=== PATIENT | male | born 1965 | race Caucasian/White ===

== ENCOUNTER 2021-09-06 20:00 | Emergency (ER) | payer OTHER, SELFPAY ==
[2021-09-06 20:06] VITALS: BP 169/88; PULSE 68; RESP 18; TEMP 36.9; O2SAT 99
--- NOTE | 2021-09-07 03:18 | PC.NURSE ---
2nd call no answer
--- NOTE | 2021-09-07 03:21 | PC.NURSE ---
Pt no answer to triage call [phone] and [phone].
== END 2021-09-07 07:22 | disposition left against medical advice (07) ==
LOC: ANHED 09-07 07:09
DX: R10.31 Right lower quadrant pain (principal)
CPT/HCPCS: 99199

== ENCOUNTER 2023-05-04 16:13 | Inpatient (IN) | payer OTHER, SELFPAY ==
[2023-05-04] VITALS (11 sets, daily range): BP systolic 146–171; BP diastolic 60–98; PULSE 80–94; RESP 16–19; TEMP 36.3–36.8; O2SAT 92–98; BMI 34.5
--- NOTE | ~2023-05-04 | XR_ITS ---
EXAMINATION: XR chest 2V DATE: 05/04/2023 16:42 INDICATION: Chest pain TECHNIQUE: PA and lateral views of the chest were obtained. COMPARISON: None FINDINGS: Azygos lobe and fissure at the medial right upper lung zone. The cardiomediastinal silhouette is norm al. Mild thoracic spondylosis and mild anterior wedging of a lower thoracic vertebral body. IMPRESSION: 1. No acute cardiopulmonary disease. Reviewed, dictated and finalized at location A. NURSE
--- NOTE | 2023-05-04 16:13 | ECG_ITS ---
Measurements Intervals [place] Rate: 92 P: 41 NM: 137 QRS: 30 QRSD: 102 T: 64 QT: 355 QTc: 440 Interpretive Statements SINUS RHYTHM WITHIN NORMAL LIMITS NO PREVIOUS ECG AVAILABLE FOR COMPARISON Electronically Signed On 05-05-2023 8:13:06 BODY FORMER by Moose Lynn M.D.
[2023-05-04 16:37] LABS: Basophils Absolute Auto 0.1 K/mm3 (0.0-0.1); Basophils Percent Auto 0.8 % (0.2-1.2); Eosinophils Absolute Auto 0.2 K/mm3 (0-0.3); Eosinophils Percent Auto 2.1 % (0-4.4); Hematocrit 47.4 % (42.0-52.0); Hemoglobin 15.4 g/dL (14.0-18.0); Immature Granulocyte Absolute 0.05 K/mm3 (0.00-0.031); Immature Granulocyte Percent A 0.5 % (0-0.5); Lymphocytes Absolute Auto 2.63 K/mm3 (0.9-3.2); Lymphocytes Percent Auto 28.6 % (18.3-44.2); Mean Corpuscular HGB Conc 32.5 g/dl (32-36); Mean Corpuscular Hemoglobin 29.9 pg (26-34); Mean Platelet Volume 10.4 fl (7.4-10.4); Monocytes Absolute Auto 0.7 K/mm3 (0.1-0.6); Monocytes Percent Auto 7.9 % (2.6-8.5); Neutrophils Absolute Auto 5.5 K/mm3 (1.3-6.7); Neutrophils Percent Auto 60.1 % (45.5-73.1); Platelet Count Result 207 k/mm3 (150-375); Red Blood Count 5.15 M/mm3 (4.6-6.20); Red Cell Distribution Width 13.1 % (11.5-14.5); White Blood Count 9.2 K/mm3 (4.5-10.0)
[2023-05-04 16:51] LABS: INR 0.9; Prothrombin Time 12.8 Seconds (11.1-14.7)
[2023-05-04 16:52] LABS: Alanine Aminotransferase 26 U/L (6-50); Albumin Level 4.9 g/dL (3.5-5.1); Alkaline Phosphatase 82 U/L (38-126); Anion Gap 10 mmol/L (8-16); Aspartate Amino Transferase 33 U/L (17-59); Bilirubin,Total 0.5 mg/dL (0.2-1.3); Blood Urea Nitrogen 17 mg/dL (9-20); Calcium 9.9 mg/dL (8.4-10.2); Carbon Dioxide 26 mmol/L (22-30); Chloride 106 mmol/L (98-107); Estimated CRCL calculation 106 ml/min; Estimated Glomerular Filt Rate > 60; Glucose 125 mg/dL (65-110); Lipase 70 U/L (23-300); Partial Thromboplastin Time 27.7 SECONDS (22.3-36.8); Potassium 3.7 mmol/L (3.4-5.0); Sodium 142 mmol/L (137-145)
[2023-05-04 17:04] LABS: Troponin I 0.027 ng/mL (0.000-0.034)
--- NOTE | 2023-05-04 19:49 | ED.CHESTPAIN ---
HPI - Chest Pain General Chief Complaint: Chest Pain Stated Complaint: chest pain Time Seen by Provider: 05/04/23 19:49 History of Present Illness HPI narrative: Patient is of 57-year-old male with no known past medical history, has not seen a doctor for more than 20 years here with chest pain. He states that he began having what he describes as some indigestion around 9:00 a.m. this morning. He states that it was persistent despite taking Tums. The discomfort was located in his mid chest, initially nonradiating but around 4:00 a.m. this afternoon it started radiating down into his left arm. He currently states that it resolved about an hour ago and is having no pain. He believes it did seem to get worse with exertion at work today. He denies any diaphoresis, nausea, shortness of breath. He denies any prior cardiac history, denies any prior cardiac workup including a stress test or cardiac catheterization. He denies any cough or congestion. He does have a family history of [place] in his father. Related Data Allergies Allergy/AdvReac Type Severity Reaction Status Date / Time Penicillins Allergy Hives Verified 05/04/23 20:20 Review of Systems Review of Systems: All systems reviewed & are unremarkable except as noted in HPI and below Exam Narrative: GENERAL: Well-appearing, well-nourished, and in no acute distress. HEAD: Normocephalic, atraumatic. EYES: PERRLA and EOMI. ENT: Nares clear. Mucous membranes moist. NECK: Supple. CHEST: Clear to auscultation. No respiratory distress. HEART: Regular rate and rhythm. Normal peripheral pulses. ABDOMEN: Soft, nontender, nondistended. EXTREMITIES: Normal range of motion. No edema. SKIN: Warm, dry, no rash. NEURO: No focal deficits. Alert and oriented x3. PSYCH: Normal mood and affect. Course Course Emergency Course: Chart review performed, patient here for chest pain. Patient had epigastric pain around 0930, then radiated down left arm. No personal cardiac history. Patient seen evaluated, nontoxic appearing, currently asymptomatic. He has been hypertensive while here in the emergency department, suspect he likely has a history of undiagnosed hypertension. Repeat troponin pending. Repeat troponin elevated at 0.190. Will heparinize for NSTEMI. Spoke with Dr. Egan from Cardiology, recommends heparin, coreg 6.25 BID, ASA, echo and EKG in the morning. Spoke with Dr. Tenorio, accepts patient for admission. Vital Signs Vital signs: Vital Signs Temperature 97.4 F L 05/04/23 16:22 Pulse Rate 91 05/04/23 16:22 Respiratory Rate 18 05/04/23 16:22 Blood Pressure 171/96 H 05/04/23 16:22 Pulse Oximetry 97 05/04/23 16:22 Oxygen Delivery Room Air 05/04/23 16:22 Temperature 97.4 F L 05/04/23 16:22 Pulse Rate 87 05/04/23 20:22 Respiratory Rate 18 05/04/23 20:22 Blood Pressure 152/94 H 05/04/23 20:22 Pulse Oximetry 95 05/04/23 20:22 Oxygen Delivery Room Air 05/04/23 20:20 MDM - Chest Pain Lab Data 05/04/23 16:28 05/04/23 16:28 Labs: Lab Results 05/04/23 05/04/23 Range/Units 16:28 19:53 WBC 9.2 (4.5-10.0) K/mm3 RBC 5.15 (4.6-6.20) M/mm3 Hgb 15.4 (14.0-18.0) g/dL Hct 47.4 (42.0-52.0) % MCV 92.0 (80-100) fl MCH 29.9 (26-34) pg MCHC 32.5 (32-36) g/dl RDW 13.1 (11.5-14.5) % Plt Count 207 (150-375) k/mm3 MPV 10.4 (7.4-10.4) fl Immature Gran % (Auto) 0.5 (0-0.5) % Neut % (Auto) 60.1 (45.5-73.1) % Lymph % (Auto) 28.6 (18.3-44.2) % [place] % (Auto) 7.9 (2.6-8.5) % Eos % (Auto) 2.1 (0-4.4) % Baso % (Auto) 0.8 (0.2-1.2) % Lymph # (Auto) 2.63 (0.9-3.2) K/mm3 [place] # (Auto) 0.7 H (0.1-0.6) K/mm3 Eos # (Auto) 0.2 (0-0.3) K/mm3 Baso # (Auto) 0.1 (0.0-0.1) K/mm3 Abs Immat Gran (auto) 0.05 H (0.00-0.031) K/mm3 Absolute Neuts (auto) 5.5 (1.3-6.7) K/mm3 Absolute Nucleated RBC 0.0 (0.0-0.012) K/mm3 Nucleated RBC % 0.0 (0.
--- NOTE | 2023-05-04 19:53 | ECG_ITS ---
Measurements Intervals [place] Rate: 84 P: 30 VT: 140 QRS: 10 QRSD: 98 T: 64 QT: 367 QTc: 435 Interpretive Statements SINUS RHYTHM WITHIN NORMAL LIMITS COMPARED TO ECG 05/04/2023 16:18:23 NO SIGNIFICANT CHANGES Electronically Signed On 05-05-2023 8:19:22 ACCOUNTS EXECUTIVE by Moose Lynn M.D.
[2023-05-04] MEDS: HEPARIN SODIUM 5,000 UNITS/ML VIAL 4000 UNITS IV PUSH (20:38)
[2023-05-04] MEDS: ASPIRIN 81 MG CHEWABLE TABLET 324 MG PO (20:38)
[2023-05-04] MEDS: HEPARIN SOD/D5W 100 UNITS/ML 25,000 UNITS/250 ML BAG 9 UNITS IV CONT (20:57)
[2023-05-04] MEDS: carvediloL 6.25 MG TABLET PO (21:55)
--- NOTE | 2023-05-04 21:59 | PM.IMHP ---
H&P: HPI History of Present Illness Date/Time: 05/04/23 21:59 Chief Complaint: chest pain Narrative: A 57-year-old male with no significant past medical history who presents to the ED for evaluation of sudden onset midsternal chest pain that radiated to left arm, he described pain as indigestion, however pain was not relieved by Tums, towards noon pain radiated to the left upper extremity, denied nausea vomiting, diaphoresis, palpitation of prior heart attack, no cough congestion or sore throat. As at the time of arrival to emergency department pain was minimal. His EKG was not concerning for any acute cardiac ischemia however he is repeat troponin came back high. He denied any chest pain currently. Patient was started on heparin drip and I was called to admit this patient for further evaluation. Review of Systems Review of Systems: All systems reviewed & are unremarkable except as noted in HPI and below PMFSH Family History Family History Father Acute myocardial infarction Hypertension Social History Social History Smoking status: Never smoker Alcohol intake: never Substance use: never Substance use type: does not use Do You Feel Safe in your Home?: Yes Lack of Transportation: No Lack of Food: Never True Current Housing: I Have Housing Concerned About Future Housing: No Difficulty Paying Gas/Electric Bills: No Difficulty Paying for Meds: No Currently Unemployed: No Education: High School Diploma/GED Difficulty w/ Childcare or Family Care: No Spiritual care concerns: Yes Meds Home Medications and Allergies Home Medications Medication Instructions Recorded Confirmed Type No Home Medications 05/04/23 05/04/23 History Allergies Allergy/AdvReac Type Severity Reaction Status Date / Time Penicillins Allergy Hives Verified 05/04/23 20:20 Vital Signs Vital Signs - 24 hr 05/04/23 16:22 05/04/23 20:20 05/04/23 20:20 Temperature 97.4 F L Pulse Rate 91 84 Respiratory Rate 18 Blood Pressure 171/96 H Pulse Oximetry 97 96 Oxygen Delivery Room Air Room Air 05/04/23 20:22 05/04/23 20:31 05/04/23 20:46 Temperature Pulse Rate 87 83 94 Respiratory Rate 18 17 18 Blood Pressure 152/94 H 152/89 H 149/98 H Pulse Oximetry 95 92 96 Oxygen Delivery 05/04/23 21:01 05/04/23 21:16 05/04/23 21:55 Temperature Pulse Rate 87 85 93 Respiratory Rate 19 18 Blood Pressure 155/94 H 146/92 H Pulse Oximetry 93 94 Oxygen Delivery Exam Narrative: GENERAL: Well-appearing, well-nourished, and in no acute distress. HEAD: Normocephalic, atraumatic. EYES: EOMI. ENT: Nares clear.? Mucous membranes moist. NECK: Supple. CHEST: Clear to auscultation.? No respiratory distress. HEART: Regular rate and rhythm.? Normal peripheral pulses. ABDOMEN: Soft, nontender, nondistended. EXTREMITIES: Normal range of motion.? No edema. SKIN: Warm, dry, no rash. NEURO: No focal deficits.? Alert and oriented x3. PSYCH: Normal mood and affect. ? H&P: Results Labs Labs: Short CBC 05/04/23 Range/Units 16:28 WBC 9.2 (4.5-10.0) K/mm3 Hgb 15.4 (14.0-18.0) g/dL Hct 47.4 (42.0-52.0) % Plt Count 207 (150-375) k/mm3 BMP 05/04/23 16:28 Sodium 142 Potassium 3.7 Chloride 106 Carbon Dioxide 26 BUN 17 Creatinine 0.70 Glucose 125 H Calcium 9.9 Cardiac Enzymes 05/04/23 05/04/23 Range/Units 16:28 19:53 Troponin I 0.027 0.190 H* D (0.000-0.034) ng/mL Liver Function 05/04/23 Range/Units 16:28 Total Bilirubin 0.5 (0.2-1.3) mg/dL AST 33 (17-59) U/L ALT 26 (6-50) U/L Alkaline Phosphatase 82 (38-126) U/L Albumin 4.9 (3.5-5.1) g/dL ECG Interpretation: Sinus reading, regular rate, Q-wave on III, normal axis, normal [place], QRS and QT/QTC, no acute STT wave changes Imaging Chest x-ray: Radiologist's impression: TECHNIQUE: PA and lat
[2023-05-04 23:44] LABS: Troponin I 0.205 ng/mL (0.000-0.034)
[2023-05-04 23:58] LABS: Cholesterol 185 mg/dL (0-200); HDL Direct 38 mg/dL; Triglycerides 125 mg/dL (<150)
[2023-05-05] VITALS (18 sets, daily range): BP systolic 130–149; BP diastolic 78–87; PULSE 67–90; RESP 18–20; TEMP 35.7–36.8; O2SAT 93–95
[2023-05-05 00:09] LABS: LDL Cholesterol Direct 127 mg/dL
--- NOTE | 2023-05-05 00:16 | ADMGEN ---
This patient, Augusto Anderson, was admitted to IMU Room 210-01. Patient/family oriented to hospital policies and general routines including ID bracelet, bed and alarms, visiting hours, pain management, procedures, bathroom and other care routines, personal items, smoking policy, room service/diet, and visiting hours. Information on how to activate the Rapid Response Team has been discussed. Patient/Family are encouraged to report perceived risks to care and to ask questions if they do not understand what they are told or what they should do.
[2023-05-05 03:16] LABS: Basophils Absolute Auto 0.1 K/mm3 (0.0-0.1); Basophils Percent Auto 0.4 % (0.2-1.2); Eosinophils Absolute Auto 0.1 K/mm3 (0-0.3); Eosinophils Percent Auto 0.6 % (0-4.4); Hematocrit 45.3 % (42.0-52.0); Hemoglobin 14.9 g/dL (14.0-18.0); Immature Granulocyte Absolute 0.05 K/mm3 (0.00-0.031); Immature Granulocyte Percent A 0.4 % (0-0.5); Lymphocytes Absolute Auto 2.35 K/mm3 (0.9-3.2); Lymphocytes Percent Auto 20.6 % (18.3-44.2); Mean Corpuscular HGB Conc 32.9 g/dl (32-36); Mean Corpuscular Hemoglobin 30.2 pg (26-34); Mean Corpuscular Volume 91.9 fl (80-100); Monocytes Absolute Auto 0.7 K/mm3 (0.1-0.6); Neutrophils Absolute Auto 8.2 K/mm3 (1.3-6.7); Platelet Count Result 219 k/mm3 (150-375); Red Blood Count 4.93 M/mm3 (4.6-6.20); Red Cell Distribution Width 13.2 % (11.5-14.5); White Blood Count 11.4 K/mm3 (4.5-10.0)
[2023-05-05 03:31] LABS: Prothrombin Time 13.1 Seconds (11.1-14.7)
[2023-05-05 03:32] LABS: Anion Gap 7 mmol/L (8-16); Blood Urea Nitrogen 15 mg/dL (9-20); Calcium 9.8 mg/dL (8.4-10.2); Carbon Dioxide 27 mmol/L (22-30); Chloride 106 mmol/L (98-107); Estimated CRCL calculation 109 ml/min; Estimated Glomerular Filt Rate > 60; Glucose 109 mg/dL (65-110); Partial Thromboplastin Time 36.4 SECONDS (22.3-36.8); Potassium 4.4 mmol/L (3.4-5.0); Sodium 140 mmol/L (137-145)
[2023-05-05] MEDS: HEPARIN SODIUM 5,000 UNITS/ML VIAL 4000 UNITS IV PUSH ×2 (03:39→10:20)
[2023-05-05 04:06] LABS: Troponin I 0.136 ng/mL (0.000-0.034)
--- NOTE | 2023-05-05 06:00 | ECHO_ITS ---
Patient Info Name: Augusto Andesron Age: 57 years : 1965 Gender: Male Ht: 65 in Wt: 214 lbs BSA: 2.15 m2 HR: 68 bpm BP: 139 / 68 mmHg Heart Rhythm: Sinus Rhythm Technical Quality: Good Exam Date: 05/05/2023 2:02 PM Exam Location: Echo Lab Patient Status: Inpatient Admit Date: 05/04/2023 Staff Ordering Physician: Pina Hawthorne MD General Assembler Installer: Jose London [facility] Attending Provider: Kerry Tenorio MD Exam Type: CA echo doppler color flow Study Info Indications - NSTEMI Complete two-dimensional, color flow and Doppler transthoracic echocardiogram is performed. Summary 1. Complete two-dimensional, color flow and Doppler transthoracic echocardiogram is performed. 2. Normal left ventricular size and systolic function without ischemic wall motion abnormality. 3. Grade 1 diastolic noncompliance. 4. No valvular dysfunction. Left Ventricle Left ventricular chamber dimension is normal. Left ventricular systolic function is normal, estimated at 55-60%. The left ventricular diastolic function is grade I diastolic dysfunction. Right Ventricle Right ventricular chamber dimension is normal. Left Atria Left atrial chamber dimension is normal. Right Atria Right atrial chamber dimension is normal. Aortic Valve The aortic valve is normal. Pulmonic Valve The pulmonic valve is not well visualized. Mitral Valve The mitral valve has normal leaflets. Tricuspid Valve The tricuspid valve leaflets are normal. Pericardium/Pleural The pericardium appears normal. Aorta The aortic root size at the sinus of Valsalva is normal. Left Ventricular Outflow Tract Name Value Normal LVOT 2D LVOT Diameter 2.2 cm LVOT Doppler LVOT Peak Gradient 6 mmHg LVOT Mean Gradient 3 mmHg LVOT VTI 26 cm LVOT VTI/AV VTI Ratio 1.0 LVOT Stroke Volume 98 ml LVOT CO 6.8 l/min LVOT CI 3.2 l/min/m2 Pulmonic Valve Name Value Normal RVOT Doppler RVOT Peak Gradient 2 mmHg PV Doppler PV Peak Gradient 2 mmHg Mitral Valve Name Value Normal MV Doppler MV [place] 272 cm/s2 MV PHT 72 ms MV Area (PHT) 3.0 cm2 4.0-5.0 MV Diastolic Function MV E Peak Velocity 68 cm/s MV A Peak Velocity 91 c
--- NOTE | 2023-05-05 06:00 | ECG_ITS ---
Measurements Intervals [place] Rate: 73 P: 18 NE: 158 QRS: 17 QRSD: 98 T: 74 QT: 354 QTc: 391 Interpretive Statements SINUS RHYTHM NONSPECIFIC T-WAVE ABNORMALITY ABNORMAL ECG COMPARED TO ECG 05/04/2023 22:59:51 NO SIGNIFICANT CHANGES Electronically Signed On 05-05-2023 8:33:55 TAX SERVICES MANAGER by Moose Lynn M.D.
[2023-05-05 10:03] LABS: Partial Thromboplastin Time 52.3 SECONDS (22.3-36.8)
[2023-05-05] MEDS: carvediloL 6.25 MG TABLET PO ×2 (10:21→20:24)
--- NOTE | 2023-05-05 10:46 | PM.IMPN ---
Progress Note: A&P Assessment and Plan (1) Acute non-ST elevation myocardial infarction (NSTEMI): Code(s): I21.4 - Non-ST elevation (NSTEMI) myocardial infarction Status: Acute Assessment and Plan: Admit patient for further management, continue heparin drip and titrate based on protocol pain control as needed, cardiology consult appreciate recommendation and plan -continue ASA 81 mg daily -continue heparin drip per protocol -continue clopidogrel 75 mg daily -continue rosuvastatin 20 mg p.o. daily -check ECHO Subjective Date/time seen: 05/05/23 10:46 Interval history: A 57-year-old male with no significant past medical history who presents to the ED for evaluation of sudden onset midsternal chest pain that radiated to left arm, he described pain as indigestion, however pain was not relieved by Tums, towards noon pain radiated to the left upper extremity, denied nausea vomiting, diaphoresis, palpitation of prior heart attack, no cough congestion or sore throat.? As at the time of arrival to emergency department pain was minimal.? His EKG was not concerning for any acute cardiac ischemia however he is repeat troponin came back high.? He denied any chest pain currently.? Patient was started on heparin drip and I was called to admit this patient for further evaluation. Interval Hx:05/05/2023 Patient seen today, he is resting in the bed no acute distress he denies any chest pain, or SOB at this time. He reports a history chest pain for the sudden onset it was midsternal and radiated to his left arm, he states he initially thought it was indigestion, he reports taken at Tums he states his pain was not relieved. Plan, cardiology has been consulted, plan to continue ASA daily, loading dose clopidogrel, followed by maintenance dose start rosuvastatin-continue to monitor EKG, troponin. Review of Systems Review of Systems: All systems reviewed & are unremarkable except as noted in HPI and below Exam Narrative: GENERAL: Well-appearing, well-nourished, and in no acute distress. HEAD: Normocephalic, atraumatic. EYES: EOMI. ENT: Nares clear.? Mucous membranes moist. NECK: Supple. CHEST: Clear to auscultation.? No respiratory distress. HEART: Regular rate and rhythm.? Normal peripheral pulses. ABDOMEN: Soft, nontender, nondistended. EXTREMITIES: Normal range of motion.? No edema. SKIN: Warm, dry, no rash. NEURO: No focal deficits.? Alert and oriented x3. PSYCH: Normal mood and affect. ? Objective Data Vital Signs Vital Signs: Vital Signs - 24 hr 05/04/23 16:22 05/04/23 20:20 05/04/23 20:20 Temperature 97.4 F L Pulse Rate 91 84 Respiratory Rate 18 Blood Pressure 171/96 H Pulse Oximetry 97 96 Oxygen Delivery Room Air Room Air 05/04/23 20:22 05/04/23 20:31 05/04/23 20:46 Temperature Pulse Rate 87 83 94 Respiratory Rate 18 17 18 Blood Pressure 152/94 H 152/89 H 149/98 H Pulse Oximetry 95 92 96 Oxygen Delivery 05/04/23 21:01 05/04/23 21:16 05/04/23 21:55 Temperature Pulse Rate 87 85 93 Respiratory Rate 19 18 Blood Pressure 155/94 H 146/92 H Pulse Oximetry 93 94 Oxygen Delivery 05/04/23 23:31 05/04/23 23:20 05/04/23 23:23 Temperature 98.2 F Pulse Rate 80 80 82 Respiratory Rate 16 16 Blood Pressure 156/60 H Pulse Oximetry 98 98 Oxygen Delivery Room Air 05/05/23 00:00 05/05/23 01:43 05/05/23 04:00 Temperature 98.2 F Pulse Rate 70 67 72 Respiratory Rate 18 Blood Pressure 139/87 Pulse Oximetry 94 Oxygen Delivery 05/05/23 04:00 05/05/23 04:00 05/05/23 05:30 Temperature Pulse Rate 72 68 68 Respiratory Rate 18 Blood Pressure Pulse Oximetry 94 Oxygen Delivery Room Air 05/05/23 08:18 05/05/23 10:21 Temperature 97.1 F L Pulse Rate 80 90 Respiratory Rate Blood Pressure 149/87 H Pulse Oximetry 95 Oxygen Delivery Intake/Output Intake/Output: Intake & Output 05/02/23 05/03/23 05/04/23 05/05/23 23:59 2
--- NOTE | 2023-05-05 11:37 | PM.CNCAR ---
Assessment and Plan Assessment and plan (1) Acute non-ST elevation myocardial infarction (NSTEMI): Code(s): I21.4 - Non-ST elevation (NSTEMI) myocardial infarction Status: Acute Plan This is a 57-year-old man previously healthy. He did have coronary disease in his father who underwent bypass surgery in his 60s. Otherwise he has no known medical problems. He is admitted to the hospital with ischemic type chest pain and radiating to left arm yesterday associated with normal electrocardiograms but with a very modest rise in his troponin. In this setting we should recommended proceed with coronary angiography. If he remains stable that will be done on Sunday morning. In the meantime I have will put orders in for ongoing treatment with aspirin, a loading dose of clopidogrel followed by maintenance dose starting tomorrow and rosuvastatin to start today. Further recommendations will be pending completion of his coronary angiograms which I expect to perform on Sunday Moose Lynn MD [facility] History of Present Illness History of Present Illness Consult date/time: 05/05/23 11:37 Reason For Visit: NSTEMI Narrative: This is a 57-year-old man I am seeing at the request of the hospitalist because of acute coronary syndrome. The patient was in his usual state of good health when yesterday morning at about 4:00 a.m. he started to have symptoms that he initially attributed to indigestion. He describes symptoms of a burning pressure-like pain in the retro sternum which were initially fairly mild during the day this symptom waxed and waned in gradually the episodes became more intense and associated with some pain into the left shoulder and left arm. When this started to occur he had a friend bring him to the hospital for evaluation. In the emergency room his electrocardiogram looked normal and remained normal x4 sets. His initial troponin level was normal but the 2nd and 3rd samples did rise slightly which resulted in him receiving the diagnosis of acute coronary syndrome, he was given aspirin and heparin and admitted to the hospital. He states that earlier this morning he had an episode of this discomfort that was very mild I lasted for about 30 seconds and was self-limited. He feels well at this time and offers no other complaints. He has been given beta-wil therapy in the way of carvedilol by the hospitalist. He does not have any prior known medical problems he says he has not seen a physician in more than 20 years he does not take any medications at home and is allergic to penicillin. Patient is a nonsmoker and works in a [employer] he is single and has never been Review of Systems Constitutional: Constitutional: Reports no additional constitutional complaints Eyes: Eyes: Reports no additional eye complaints ENT: Reports system reviewed and no additional complaints, except as documented Cardiovascular: Cardiovascular: Reports as per HPI Respiratory: Respiratory: Reports no additional respiratory complaints Gastrointestinal: Gastrointestinal: Reports no additional gastrointestinal complaints Musculoskeletal: Musculoskeletal: Reports no additional musculoskeletal complaints Integumentary/Breasts: Skin/Breast: Reports system reviewed and no additional complaints, except as docu Neurologic: Reports system reviewed and no additional complaints, except as documented Endocrine: Endocrine: Reports no additional endocrine complaints Hematologic/Lymphatic: Hematologic/Lymphatic: Reports no additional hematologic/lymphatic complaints Allergic/Immunologic: Allergic/Immunologic: Reports no additional allergic/immunologic complaints [facility] Family History Family History Father Acute myocardial infarction Hypertension Social History Social History Smoking status: Never smoker Alcohol intake: never Substance use: never Substance use type: does not use
--- NOTE | 2023-05-05 11:43 | ECG_ITS ---
Measurements Intervals [place] Rate: 79 P: 29 HI: 146 QRS: 8 QRSD: 96 T: 64 QT: 364 QTc: 418 Interpretive Statements SINUS RHYTHM LOW QRS VOLTAGE IN PRECORDIAL LEADS [QRS DEFLECTION < 1.0 mV IN CHEST LEADS] OTHERWISE WITHIN NORMAL LIMITS COMPARED TO ECG 05/04/2023 20:20:57 NO SIGNIFICANT CHANGE Electronically Signed On 05-05-2023 19:08:54 CLEAN OUT DRILLER by Moose Lynn M.D.
[2023-05-05] MEDS: CLOPIDOGREL BISULFATE 300 MG TABLET 600 MG PO (12:36)
[2023-05-05] MEDS: ASPIRIN 81 MG ENTERIC TABLET PO (12:36)
[2023-05-05] MEDS: ROSUVASTATIN 20 MG TABLET PO (12:36)
[2023-05-05 17:36] LABS: Partial Thromboplastin Time 78.9 SECONDS (22.3-36.8)
[2023-05-05] MEDS: HEPARIN SOD/D5W 100 UNITS/ML 25,000 UNITS/250 ML BAG 15 UNITS IV CONT (17:49)
[2023-05-06] VITALS (20 sets, daily range): BP systolic 134–149; BP diastolic 81–88; PULSE 61–91; RESP 18–22; TEMP 35.6–36.3; O2SAT 94–95
[2023-05-06 00:34] LABS: Partial Thromboplastin Time 87.8 SECONDS (22.3-36.8)
[2023-05-06 09:17] LABS: Partial Thromboplastin Time 80.3 SECONDS (22.3-36.8)
[2023-05-06] MEDS: CLOPIDOGREL BISULFATE 75 MG TABLET PO (09:59)
[2023-05-06] MEDS: carvediloL 6.25 MG TABLET PO ×2 (09:59→20:48)
[2023-05-06] MEDS: ROSUVASTATIN 20 MG TABLET PO (09:59)
[2023-05-06] MEDS: ASPIRIN 81 MG ENTERIC TABLET PO (09:59)
[2023-05-06] MEDS: HEPARIN SOD/D5W 100 UNITS/ML 25,000 UNITS/250 ML BAG 15 UNITS IV CONT (11:20)
--- NOTE | 2023-05-06 12:01 | PM.PNCARD ---
Progress Note: A&P Assessment and Plan (1) Acute non-ST elevation myocardial infarction (NSTEMI): Code(s): I21.4 - Non-ST elevation (NSTEMI) myocardial infarction Status: Acute Plan 57-year-old man without prior cardiac history admitted with acute coronary syndrome. Plans are in place for left heart catheterization tomorrow. Schedule tomorrow was very busy the timing of this procedure is uncertain at this time. NPO orders will be put in his chart for tomorrow's procedure Moose Lynn MD [facility] Subjective Date/time seen: Date of service: 05/06/23 12:01 Interval history: Follow-up visit in this 57-year-old man with: Episode of ischemic chest pain yesterday with elevated troponin consistent with acute coronary syndrome/non ST elevation [place]. He is stable on aggressive medical therapy no further ischemic symptoms. Plans are in place for angiography tomorrow. Patient understands this and is agreeable. Exam Const: General: comfortable and no acute distress Other: Pleasant obese man no apparent distress HENMT: Mouth: Yes moist mucous membranes Eyes: Sclera: sclerae normal Neck: Neck: supple Resp: Effort & Inspection: normal respiratory effort Auscultation: clear to auscultation bilaterally Cardio: Rate: regular rate Rhythm: regular rhythm GI: GI Palp: Yes Soft to palpation Auscultation: normal bowel sounds Skin: General skin exam: normal color Neuro: Other: Alert and oriented x3 Extrem: Other: Good pulses, no edema Objective Data Vital Signs Vital Signs: Vital Signs - 24 hr 05/05/23 16:00 05/05/23 14:00 05/05/23 16:00 Temperature 36.6 C Pulse Rate 77 70 83 Respiratory Rate 18 Blood Pressure 130/84 Pulse Oximetry 93 Oxygen Delivery 05/05/23 18:00 05/05/23 16:00 05/05/23 20:02 Temperature 36.4 C L Pulse Rate 70 72 79 Respiratory Rate 18 18 Blood Pressure 140/81 Pulse Oximetry 94 95 Oxygen Delivery Room Air 05/05/23 20:24 05/05/23 23:17 05/05/23 20:00 Temperature 36.1 C L Pulse Rate 88 78 76 Respiratory Rate 18 Blood Pressure 135/78 Pulse Oximetry 95 Oxygen Delivery 05/05/23 22:00 05/06/23 00:00 05/06/23 02:00 Temperature Pulse Rate 70 63 61 Respiratory Rate Blood Pressure Pulse Oximetry Oxygen Delivery 05/06/23 03:42 05/06/23 04:00 05/06/23 06:00 Temperature 36.2 C L Pulse Rate 72 61 71 Respiratory Rate 18 Blood Pressure 143/88 H Pulse Oximetry 94 Oxygen Delivery 05/06/23 08:06 05/06/23 09:59 05/06/23 11:58 Temperature 36.1 C L 35.6 C L Pulse Rate 73 73 79 Respiratory Rate 22 H 20 Blood Pressure 141/83 H 149/87 H Pulse Oximetry 95 95 Oxygen Delivery Intake/Output Intake/Output: Intake & Output 05/03/23 05/04/23 05/05/23 05/06/23 23:59 23:59 23:59 23:59 Intake Total 1002 1040 Output Total 150 Balance 852 1040 Meds/Results Medications: Active Medications Generic Name Dose Route Start Last Admin Trade Name Freq PRN Reason Stop Dose Admin Aspirin 81 mg 05/05/23 11:40 05/06/23 09:59 Aspirin 81 Mg Enteric Tablet PO 81 mg QAM [facility] Administration Carvedilol 6.25 mg 05/04/23 21:00 05/06/23 09:59 Carvedilol 6.25 Mg Tablet PO 6.25 mg Q12HR [facility] Administration Clopidogrel Bisulfate 75 mg 05/06/23 09:00 05/06/23 09:59 Clopidogrel Bisulfate 75 Mg Tablet PO 75 mg QAM [facility] Administration Heparin Sodium (Porcine) 4,000 units 05/04/23 20:27 05/05/23 10:20 Heparin Sodium 5,000 Units/Ml Vial IV PUSH 4,000 units PRN PRN Administration aPTT less than 55 seconds Heparin Sodium (Porcine) 3,000 units 05/04/23 20:27 Heparin Sodium 5,000 Units/Ml Vial IV PUSH PRN PRN aPTT 55 - 70 seconds Heparin Sodium/Dextrose 25,000 units in 250 mls @ 15 mls/hr 05/04/23 20:30 05/06/23 11:20 Heparin Sodium/D5w 100 Units/Ml IV CONT 1,500 units/hr .[id number] KAYLA 15 mls/hr Administra
--- NOTE | 2023-05-06 12:26 | PM.IMPN ---
Progress Note: A&P Assessment and Plan (1) Acute non-ST elevation myocardial infarction (NSTEMI): Code(s): I21.4 - Non-ST elevation (NSTEMI) myocardial infarction Status: Acute Assessment and Plan: Patient reported ischemic chest pain yesterday, elevated troponin this is consistent with acute coronary syndrome NSTEMi continue heparin drip and titrate based on protocol pain control as needed, cardiology consult appreciate recommendation and plan -continue ASA 81 mg daily -continue heparin drip per protocol -continue clopidogrel 75 mg daily -continue rosuvastatin 20 mg p.o. daily Echocardiogram 05/05/2023: left ventricular systolic function is normal 55-60% -left ventricular diastolic function is grade 1 diastolic noncompliance -no valvular dysfunction Plan for left heart catheterization in the morning, NPO after midnight Subjective Date/time seen: 05/06/23 12:26 Interval history: Interval history: A 57-year-old male with no significant past medical history who presents to the ED for evaluation of sudden onset midsternal chest pain that radiated to left arm, he described pain as indigestion, however pain was not relieved by Tums, towards noon pain radiated to the left upper extremity, denied nausea vomiting, diaphoresis, palpitation of prior heart attack, no cough congestion or sore throat.? As at the time of arrival to emergency department pain was minimal.? His EKG was not concerning for any acute cardiac ischemia however he is repeat troponin came back high.? He denied any chest pain currently.? Patient was started on heparin drip and I was called to admit this patient for further evaluation. Interval Hx:05/05/2023 Patient seen today, he is resting in the bed no acute distress he denies any chest pain, or SOB at this time.? He reports a history chest pain for the sudden onset it was midsternal and radiated to his left arm, he states he initially thought it was indigestion, he reports taken at Tums he states his pain was not relieved.? Plan, cardiology has been consulted, plan to continue ASA daily, loading dose clopidogrel, followed by maintenance dose start rosuvastatin-continue to monitor EKG, troponin. 05/06/2023: Pt seen this a.m he is resting in the bed, denies any chest pain, sob, or overnight events at this time. Patient seen and evaluated by Cardiology this morning plan is to prepare for left heart catheterization in the morning, unknown timing, discussed with patient we will still plan for NPO after midnight. He agrees to plan denies any other complaints at this time. Review of Systems Review of Systems: All systems reviewed & are unremarkable except as noted in HPI and below Exam Narrative: GENERAL: Well-appearing, well-nourished, and in no acute distress. HEAD: Normocephalic, atraumatic. EYES: EOMI. ENT: Nares clear.? Mucous membranes moist. NECK: Supple. CHEST: Clear to auscultation.? No respiratory distress. HEART: Regular rate and rhythm.? Normal peripheral pulses. ABDOMEN: Soft, nontender, nondistended. EXTREMITIES: Normal range of motion.? No edema. SKIN: Warm, dry, no rash. NEURO: No focal deficits.? Alert and oriented x3. PSYCH: Normal mood and affect. ? Objective Data Vital Signs Vital Signs: Vital Signs - 24 hr 05/05/23 16:00 05/05/23 14:00 05/05/23 16:00 Temperature 97.8 F Pulse Rate 77 70 83 Respiratory Rate 18 Blood Pressure 130/84 Pulse Oximetry 93 Oxygen Delivery 05/05/23 18:00 05/05/23 16:00 05/05/23 20:02 Temperature 97.5 F L Pulse Rate 70 72 79 Respiratory Rate 18 18 Blood Pressure 140/81 Pulse Oximetry 94 95 Oxygen Delivery Room Air 05/05/23 20:24 05/05/23 23:17 05/05/23 20:00 Temperature 97.0 F L Pulse Rate 88 78 76 Respiratory Rate 18 Blood Pressure 135/78 Pulse Oximetry 95 Oxygen Delivery 05/05/23 22:00 05/06/23 00:00 05/06/23 02:00 Temperature Pulse Rate 70 63 61 Respiratory Rate Blo
[2023-05-07] VITALS (24 sets, daily range): BP systolic 120–144; BP diastolic 75–94; PULSE 64–95; RESP 14–20; TEMP 36–37; O2SAT 93–98
[2023-05-07] MEDS: HEPARIN SOD/D5W 100 UNITS/ML 25,000 UNITS/250 ML BAG 15 UNITS IV CONT (04:12)
[2023-05-07 04:58] LABS: Partial Thromboplastin Time 67.9 SECONDS (22.3-36.8)
[2023-05-07] MEDS: ROSUVASTATIN 20 MG TABLET PO (08:41)
[2023-05-07] MEDS: CLOPIDOGREL BISULFATE 75 MG TABLET PO (08:41)
[2023-05-07] MEDS: carvediloL 6.25 MG TABLET PO ×2 (08:41→20:11)
[2023-05-07] MEDS: ASPIRIN 81 MG ENTERIC TABLET PO (08:41)
--- NOTE | 2023-05-07 10:44 | WPDMODSED ---
Moderate Sedation Note-Pt Data Patient Data Diagnosis: Acute coronary syndrome / non ST elevation [place] Present Complaint: chest pain upon admission currently asymptomatic Procedure to be performed/Plan: left heart catheterization Allergies Allergy/AdvReac Type Severity Reaction Status Date / Time Penicillins Allergy Hives Verified 05/04/23 20:20 Home Medications Medication Instructions Recorded Confirmed Type No Home Medications 05/04/23 05/04/23 History Current Medications: Active Medications Aspirin (Aspirin 81 Mg Enteric Tablet) 81 mg PO QAM [facility] Last Admin: 05/07/23 08:41 Dose: 81 mg Carvedilol (Carvedilol 6.25 Mg Tablet) 6.25 mg PO Q12HR [facility] Last Admin: 05/07/23 08:41 Dose: 6.25 mg Clopidogrel Bisulfate (Clopidogrel Bisulfate 75 Mg Tablet) 75 mg PO QAM [facility] Last Admin: 05/07/23 08:41 Dose: 75 mg Heparin Sodium (Porcine) (Heparin Sodium 5,000 Units/Ml Vial) 4,000 units IV PUSH PRN PRN PRN Reason: aPTT less than 55 seconds Last Admin: 05/05/23 10:20 Dose: 4,000 units Heparin Sodium (Porcine) (Heparin Sodium 5,000 Units/Ml Vial) 3,000 units IV PUSH PRN PRN PRN Reason: aPTT 55 - 70 seconds Heparin Sodium/Dextrose (Heparin Sodium/D5w 100 Units/Ml) 25,000 units in 250 mls @ 16 mls/hr IV CONT .[id number] [facility]; Protocol Last Titration: 05/07/23 06:08 Dose: 1,600 units/hr, 16 mls/hr Morphine Sulfate (Morphine Sulfate (*Crx) 2 Mg/Ml Inj) 2 mg IV PUSH Q5M PRN PRN Reason: Pain Rated 4-6 Ondansetron HCl (Ondansetron Inj 4 Mg/2 Ml Vial) 4 mg IV PUSH Q4H PRN PRN Reason: Nausea And Vomiting Perflutren Lipid Microsphere (Perflutren Lipid Microspheres 1.5 Ml Vial Diluted To 10 Ml Total Volume) 0 ml IV PUSH ONCE PRN; Protocol PRN Reason: adequate visualization Stop: 05/07/23 21:29 Rosuvastatin Calcium (Rosuvastatin 20 Mg Tablet) 20 mg PO QAM [facility] Last Admin: 05/07/23 08:41 Dose: 20 mg Sedation/Anesthesia: No previous sedation/anesthesia problems (including family history). [facility] Family History Family History Father Acute myocardial infarction Hypertension Social History Social History Smoking status: Never smoker Alcohol intake: never Substance use: never Substance use type: does not use Do You Feel Safe in your Home?: Yes Lack of Transportation: No Lack of Food: Never True Current Housing: I Have Housing Concerned About Future Housing: No Difficulty Paying Gas/Electric Bills: No Difficulty Paying for Meds: No Currently Unemployed: No Education: High School Diploma/GED Difficulty w/ Childcare or Family Care: No Spiritual care concerns: Yes Mod Sed Physical Exam Physical Exam Pre Procedural Exam: Normal: Throat, Airway, Lungs, Heart Size, Heart Rate, Heart Rhythm, Neuro Exam and Extremities and Variation: Appearance ( pleasant obese gentleman) Hours since solid foods: 12 Hours since liquid intake: 12 Mallampati Classification: class II Internal Medicine - PN: Obj Da Vital Signs Vital Signs: Vital Signs - 24 hr 05/06/23 11:58 05/06/23 12:00 05/06/23 14:00 Temperature 35.6 C L Pulse Rate 79 82 77 Respiratory Rate 20 Blood Pressure 149/87 H Pulse Oximetry 95 Oxygen Delivery 05/06/23 16:00 05/06/23 12:00 05/06/23 16:00 Temperature Pulse Rate 73 Respiratory Rate Blood Pressure Pulse Oximetry Oxygen Delivery Room Air Room Air 05/06/23 16:42 05/06/23 18:00 05/06/23 20:30 Temperature 35.6 C L 35.9 C L Pulse Rate 79 79 76 Respiratory Rate 20 20 Blood Pressure 149/87 H 134/87 Pulse Oximetry 95 95 Oxygen Delivery 05/06/23 20:48 05/06/23 23:49 05/06/23 20:00 Temperature 36.3 C L Pulse Rate 91 71 80 Respiratory Rate 18 Blood Pressure 141/81 H Pulse Oximetry 95 Oxygen Delivery 05/06/23 22:00 05/07/23 00:00 05/07/23 02:00 Temperature Pulse Rate 82 64 66 Respiratory Rate Blood Pressure Pulse Oximetry
--- NOTE | 2023-05-07 12:03 | PM.IMPN ---
Progress Note: A&P Assessment and Plan (1) Acute non-ST elevation myocardial infarction (NSTEMI): Code(s): I21.4 - Non-ST elevation (NSTEMI) myocardial infarction Status: Acute Assessment and Plan: Pt is scheduled for left heart catheterization this morning, -continue telemetry monitoring Subjective Date/time seen: 05/07/23 12:03 Interval history: Interval history: A 57-year-old male with no significant past medical history who presents to the ED for evaluation of sudden onset midsternal chest pain that radiated to left arm, he described pain as indigestion, however pain was not relieved by Tums, towards noon pain radiated to the left upper extremity, denied nausea vomiting, diaphoresis, palpitation of prior heart attack, no cough congestion or sore throat.? As at the time of arrival to emergency department pain was minimal.? His EKG was not concerning for any acute cardiac ischemia however he is repeat troponin came back high.? He denied any chest pain currently.? Patient was started on heparin drip and I was called to admit this patient for further evaluation. Interval Hx:05/05/2023 Patient seen today, he is resting in the bed no acute distress he denies any chest pain, or SOB at this time.? He reports a history chest pain for the sudden onset it was midsternal and radiated to his left arm, he states he initially thought it was indigestion, he reports taken at Tums he states his pain was not relieved.? Plan, cardiology has been consulted, plan to continue ASA daily, loading dose clopidogrel, followed by maintenance dose start rosuvastatin-continue to monitor EKG, troponin. 05/06/2023: Pt seen this a.m he is resting in the bed, denies any chest pain, sob, or overnight events at this time. Patient seen and evaluated by Cardiology this morning plan is to prepare for left heart catheterization in the morning, unknown timing, discussed with patient we will still plan for NPO after midnight. He agrees to plan denies any other complaints at this time. 05/07/2023: pt seen this am, prior to his scheduled cardiac catheterization, he denies any overnight events, continue to state he has left side chest pain, that does not radiate, he reports tight squeeze he denies any sob, jaw pain or arm pain.Plan to monitor pt overnight due to timing of procedure. Pt agrees to plan at this time. Review of Systems Review of Systems: All systems reviewed & are unremarkable except as noted in HPI and below Exam Narrative: GENERAL: Well-appearing, well-nourished, and in no acute distress pt up to br HEAD: Normocephalic, atraumatic. EYES: EOMI. ENT: Nares clear.? Mucous membranes moist. NECK: Supple. CHEST: Clear to auscultation.? No respiratory distress. HEART: Regular rate and rhythm.? Normal peripheral pulses. ABDOMEN: Soft, nontender, nondistended. EXTREMITIES: Normal range of motion.? No edema. SKIN: Warm, dry, no rash. NEURO: No focal deficits.? Alert and oriented x3. PSYCH: Normal mood and affect. ? Objective Data Vital Signs Vital Signs: Vital Signs - 24 hr 05/06/23 14:00 05/06/23 16:00 05/06/23 16:00 Temperature Pulse Rate 77 73 Respiratory Rate Blood Pressure Pulse Oximetry Oxygen Delivery Room Air 05/06/23 16:42 05/06/23 18:00 05/06/23 20:30 Temperature 96.1 F L 96.6 F L Pulse Rate 79 79 76 Respiratory Rate 20 20 Blood Pressure 149/87 H 134/87 Pulse Oximetry 95 95 Oxygen Delivery 05/06/23 20:48 05/06/23 23:49 05/06/23 20:00 Temperature 97.3 F L Pulse Rate 91 71 80 Respiratory Rate 18 Blood Pressure 141/81 H Pulse Oximetry 95 Oxygen Delivery 05/06/23 22:00 05/07/23 00:00 05/07/23 02:00 Temperature Pulse Rate 82 64 66 Respiratory Rate Blood Pressure Pulse Oximetry Oxygen Delivery 05/07/23 04:00 05/07/23 04:50 05/07/23 06:00 Temperature 96.8 F L Pulse Rate 76 67 66 Respiratory Rate 18 Blood Pressure 144/88 H Pulse Oximetry 95
--- NOTE | 2023-05-07 12:29 | ECG_ITS ---
Measurements Intervals [place] Rate: 67 P: 31 TN: 156 QRS: 45 QRSD: 95 T: 74 QT: 381 QTc: 403 Interpretive Statements SINUS RHYTHM MINIMAL ST DEPRESSION [0.025+ mV ST DEPRESSION] WARNING: DATA QUALITY MAY AFFECT INTERPRETATION V4 MISSING DATA BASELINE ARTIFACT BORDERLINE ECG COMPARED TO ECG 05/05/2023 06:15:04 ST (T WAVE) DEVIATION NOW PRESENT Electronically Signed On 05-07-2023 18:33:55 MACHINE FILLER SHREDDER by Sriram Fox M.D.
--- NOTE | 2023-05-07 12:32 | WPDCARDPROC ---
Cardiac Cath Procedure Note Date of procedure:: 05/07/23 Performing physician:: Moose Lynn MD Indication:: acute coronary syndrome Brief clinical history:: this is a 57-year-old man without prior history of coronary disease who entered the hospital with an episode of ischemic chest pain followed by a modest rise in troponin. Electrocardiogram remained benign in appearance. In this setting angiography has been recommended for this morning. Procedure Procedure performed:: Left ventriculogram coronary angiogram PCI(WING) to the LAD Angio-Seal to right femoral artery Sedation/Medication given:: fentanyl 50 mg Versed 2 mg case start time 11:20 a.m. sedation provided by Gladys Nieto RN trained observer Access site:: right femoral artery Estimated blood loss:: 25 cc Procedure note:: patient was brought to the cardiac catheterization lab in the postabsorptive state where the right femoral triangle was prepared and draped in the usual fashion. Anesthesia was provided with 1% lidocaine infiltrated locally. Using the modified Seldinger technique a 5 [place] sheath was placed into the right femoral artery and left heart catheterization was carried out. Initially a 5 [place] angled pigtail catheter was used to measure left-sided hemodynamics to inject the left ventriculogram in the ER AO projection. Following this standard 5 [place] FL4 catheter was used to engage and inject the left coronary artery. I was unable to inject the right coronary artery with the JR4 catheter. I ultimately was successfully engaged injected the right coronary using an AL1 catheter. The cineangiograms were then reviewed and PCI of the LAD was then recommended as carried out below. Prior to PCI this 5 [place] sheath was exchanged over guidewire for 6 [place] sheath. The patient received 600 mg of clopidogrel and was anticoagulated infusion of Angiomax for this intervention. Following completion of PCI detailed below an angiogram the femoral artery through the sheath and I elected to deploy a 6 [place] Angio-Seal device for hemostasis. This was successful and there was good hemostasis at the end of the case and no evidence of groin hematoma. Procedure was successful and uncomplicated. It should be noted that the patient was complaining of some mild ischemic chest pain as the procedure was beginning, during the angiogram and following the intervention Despite the fact that there is excellent KOREY 3 flow in the vessel. Findings:: Hemodynamics: Central aortic pressure was 126/76 left ventricle 126/0 end-diastolic 10 there is no gradient across the aortic valve upon pullback. Left ventricle: The left ventricle is normal in size. The mid to apical anterior wall is mildly hypodynamic the remainder of the LV contracts normally. The global ejection fraction is 50-55%. The left main coronary artery is nicely patent it has a somewhat superior takeoff but is without disease. The left anterior descending is a medium caliber artery extending down to the apex. There is a high-grade 99% stenosis in the mid LAD pre seated by a area of mild atherosclerosis after the major diagonal branch. This appears to be clearly the culprit lesion for his presentation circumflex is a moderate to large caliber artery giving rise to the marginal branches and angiographically is free of disease. The right coronary artery as stated above has an unusual takeoff was engaged with a AL1 catheter. There was modest luminal irregularity in the proximal to mid RCA but there are no flow-limiting lesions identified. Intervention: The left main coronary artery was engaged using 6 [place] CLS 3.5 guiding catheter. I used a 0.014 BMW coronary guidewire to wire the LAD which was easily advanced into the apical portion of the artery. Following this the lesion was pre-dilated with a 2.5 x 20 mm Ramon balloon at nominal pressure. Following this I elected to administ
[2023-05-07 13:29] LABS: Cholesterol 167 mg/dL (0-200); HDL Direct 39 mg/dL; Triglycerides 259 mg/dL (<150)
[2023-05-07 13:40] LABS: LDL Cholesterol Direct 102 mg/dL
[2023-05-07] MEDS: LOSARTAN POTASSIUM 25 MG TABLET PO (15:07)
[2023-05-07] MEDS: SODIUM CHLORIDE 0.9% IV 1,000 ML 125 ML IV CONT (15:08)
--- NOTE | 2023-05-07 16:45 | PCCPR ---
Patient seen at bedside to discuss cardiac rehab upon discharge. Program explained and information given.
[2023-05-08] VITALS (7 sets, daily range): BP systolic 121–125; BP diastolic 75–79; PULSE 63–81; RESP 16–20; TEMP 35.6–36.4; O2SAT 95–98
--- NOTE | 2023-05-08 05:11 | ECG_ITS ---
Measurements Intervals [place] Rate: 69 P: 29 IN: 153 QRS: 35 QRSD: 101 T: 66 QT: 367 QTc: 396 Interpretive Statements SINUS RHYTHM NONSPECIFIC T-WAVE ABNORMALITY COMPARED TO ECG 05/07/2023 14:01:12 NO SIGNIFICANT CHANGES Electronically Signed On 05-08-2023 15:34:16 FIRE SAFETY DIRECTOR by Angie Ruiz M.D.
[2023-05-08 05:42] LABS: Partial Thromboplastin Time 27.7 SECONDS (22.3-36.8)
[2023-05-08] MEDS: ASPIRIN 81 MG CHEWABLE TABLET PO (08:42)
[2023-05-08] MEDS: carvediloL 6.25 MG TABLET PO (08:42)
[2023-05-08] MEDS: ROSUVASTATIN 20 MG TABLET PO (08:42)
[2023-05-08] MEDS: LOSARTAN POTASSIUM 25 MG TABLET PO (08:42)
[2023-05-08] MEDS: CLOPIDOGREL BISULFATE 75 MG TABLET PO (08:42)
--- NOTE | 2023-05-08 11:04 | PM.PNCARD ---
Progress Note: A&P Assessment and Plan (1) Acute non-ST elevation myocardial infarction (NSTEMI): Code(s): I21.4 - Non-ST elevation (NSTEMI) myocardial infarction Status: Acute Assessment and Plan: Cardiac catheterization 08/04 showed: 1.? ? Acute coronary syndrome with severe single-vessel coronary disease with 99% stenosis in the mid LAD. 2.? ? Mid to distal anterior wall hypokinesia which is expected given the culprit lesion described above. LVEF 50-55% by LV angiogram. 3. ? Successful revascularization of the LAD using the two [place]?stents described above which provided an excellent anatomical result good KOREY 3 flow in the vessel no residual stenosis disruption dissection or distal embolization. Continue ASA 81mg once daily indefinitely. Continue Plavix 75mg once daily for at least 1 year. Continue Rosuvastatin 20mg once daily. Continue Coreg 6.25mg BID. Continue Losartan 25mg once daily. Referral to cardiac rehab placed. Okay to discharge home from our standpoint. Will arrange follow up in our office. Subjective Date/time seen: 05/08/23 11:04 Interval history: Follow-up visit in this 57-year-old man with: Episode of ischemic chest pain yesterday with elevated troponin consistent with acute coronary syndrome/non ST elevation [place]. He is stable on aggressive medical therapy no further ischemic symptoms. Plans are in place for angiography tomorrow. Patient understands this and is agreeable. Date of service 05/08: Feeling well this morning after PCI. Tele stable. Exam Const: General: comfortable and no acute distress HENMT: Mouth: Yes moist mucous membranes Eyes: General: appearance normal, both eyes and all related structures Sclera: sclerae normal Neck: Neck: supple Resp: Effort & Inspection: normal respiratory effort Cardio: Rate: regular rate Rhythm: regular rhythm Skin: General skin exam: normal color Neuro: Speech: normal speech Psych: Mental Status: mental status grossly normal Affect: normal affect Objective Data Vital Signs Vital Signs: Vital Signs - 24 hr 05/07/23 13:00 05/07/23 13:30 05/07/23 13:15 Temperature 36.7 C Pulse Rate 65 65 66 Respiratory Rate 17 18 18 Blood Pressure 120/83 130/82 127/89 Pulse Oximetry 93 93 93 Oxygen Delivery Room Air Room Air Room Air 05/07/23 13:45 05/07/23 14:15 05/07/23 14:30 Temperature Pulse Rate 68 71 Respiratory Rate 15 20 Blood Pressure 131/88 124/94 H Pulse Oximetry 94 95 Oxygen Delivery Room Air Room Air Room Air 05/07/23 14:45 05/07/23 15:45 05/07/23 16:40 Temperature 36.6 C 36.7 C 37.0 C Pulse Rate 72 74 80 Respiratory Rate 18 20 16 Blood Pressure 137/85 120/89 120/79 Pulse Oximetry 96 94 94 Oxygen Delivery 05/07/23 17:58 05/07/23 18:00 05/07/23 19:44 Temperature 36.8 C Pulse Rate 95 93 93 Respiratory Rate 14 14 Blood Pressure 127/77 Pulse Oximetry 96 96 Oxygen Delivery Room Air 05/07/23 20:11 05/07/23 20:20 05/07/23 20:00 Temperature 36.4 C Pulse Rate 82 80 72 Respiratory Rate 16 Blood Pressure 139/80 Pulse Oximetry 96 Oxygen Delivery 05/07/23 23:50 05/07/23 22:00 05/08/23 00:00 Temperature 36.5 C Pulse Rate 71 75 71 Respiratory Rate 16 16 Blood Pressure 128/75 Pulse Oximetry 95 95 Oxygen Delivery Room Air 05/08/23 00:00 05/08/23 02:00 05/08/23 04:00 Temperature Pulse Rate 71 63 63 Respiratory Rate 16 Blood Pressure Pulse Oximetry 95 Oxygen Delivery Room Air 05/08/23 04:00 05/08/23 04:00 05/08/23 06:10 Temperature 36.4 C Pulse Rate 69 78 70 Respiratory Rate 16 Blood Pressure 121/79 Pulse Oximetry 98 Oxygen Delivery 05/08/23 07:55 05/08/23 08:00 05/08/23 08:00 Temperature 35.6 C L Pulse Rate 72 81 Respiratory Rate 20 Blood Pressure 125/75 Pulse Oximetry 95 Oxygen Delivery Room Air 05/08/23 10:00 Temperature Pulse Rate 72 Respiratory Rate Blood Pressure Pu
--- NOTE | 2023-05-08 11:25 | PM.DS ---
DS: Admitting Diagnosis Discharge Date 05/08/2023 Admitting Diagnosis Acute non-ST elevation myocardial infarction DS: Discharge Diagnosis Discharge Diagnosis (1) Acute non-ST elevation myocardial infarction (NSTEMI): Code(s): I21.4 - Non-ST elevation (NSTEMI) myocardial infarction Status: Acute DS: Summary Hospital Course Reason for hospitalization: A 57-year-old male with no significant past medical history who presents to the ED for evaluation of sudden onset midsternal chest pain that radiated to left arm, he described pain as indigestion, however pain was not relieved by Tums, towards noon pain radiated to the left upper extremity, denied nausea vomiting, diaphoresis, palpitation of prior heart attack, no cough congestion or sore throat.? As at the time of arrival to emergency department pain was minimal. Hospital Course: Interval history: A 57-year-old male with no significant past medical history who presents to the ED for evaluation of sudden onset midsternal chest pain that radiated to left arm, he described pain as indigestion, however pain was not relieved by Tums, towards noon pain radiated to the left upper extremity, denied nausea vomiting, diaphoresis, palpitation of prior heart attack, no cough congestion or sore throat.? As at the time of arrival to emergency department pain was minimal.? His EKG was not concerning for any acute cardiac ischemia however he is repeat troponin came back high.? He denied any chest pain currently.? Patient was started on heparin drip and I was called to admit this patient for further evaluation. Interval Hx:05/05/2023 Patient seen today, he is resting in the bed no acute distress he denies any chest pain, or SOB at this time.? He reports a history chest pain for the sudden onset it was midsternal and radiated to his left arm, he states he initially thought it was indigestion, he reports taken at Tums he states his pain was not relieved.? Plan, cardiology has been consulted, plan to continue ASA daily, loading dose clopidogrel, followed by maintenance dose start rosuvastatin-continue to monitor EKG, troponin. 05/06/2023: Pt seen this a.m he is resting in the bed, denies any chest pain, sob, or overnight events at this time.? Patient seen and evaluated by Cardiology this morning plan is to prepare for left heart catheterization in the morning, unknown timing, discussed with patient we will still plan for NPO after midnight.? He agrees to plan denies any other complaints at this time. 05/07/2023: pt seen this am, prior to his scheduled cardiac catheterization, he denies any overnight events, continue to state he has left side chest pain, that does not radiate, he reports tight squeeze he denies any sob, jaw pain or arm pain.Plan to monitor pt overnight due to timing of procedure. Pt agrees to plan at this time. 05/08/2023: Patient seen this afternoon s/p: Cardiac catheterization that revealed acute coronary syndrome with severe single-vessel coronary disease with 99% stenosis in the mid LAD. Pt denies any chest pain nausea vomiting fever chills at this time. Cardiology revealed successful revascularization of the LAD, recommends outpatient follow-up this scheduled, continue ASA 81 mg daily indefinitely, continue Plavix 75 mg once daily for at least a year continue rosuvastatin 20 mg once daily, continue Coreg 6.2 b.i.d.-continue start 25 mg once daily. Status at Discharge Functional status at discharge: independent ambulation Time Spent with Patient Time attestation: Total time spent providing and/or coordinating discharge services: Time spent: Less than 30 minutes Exam Narrative: GENERAL: Well-appearing, well-nourished, and in no acute distress pt up to br HEAD: Normocephalic, atraumatic. EYES: EOMI. ENT: Nares clear.? Mucous membranes moist. NECK: Supple. CHEST: Clear to auscultation.? No respiratory distress. HEART: Regular rate and rhythm.? Normal peripheral pulses. ABDOMEN: Soft, nontend
== END 2023-05-08 12:30 | disposition home or self-care (01) | DRG 322 ==
LOC: ANHED 20:38 → ANHIMU 23:01
PROVIDERS: Emergency Medicine; Specialist; Admitting Provider Student in an Organized Health Care Education/Training Program; Emergency Provider Student in an Organized Health Care Education/Training Program; Visit Provider Nurse Practitioner
PROC: 4A023N7 Measurement of Cardiac Sampling and Pressure, Left Heart, Percutaneous Approach (ICD-10-PCS; CPT 93452; principal; 2023-05-07 10:30)
PROC: 027035Z Dilation of Coronary Artery, One Artery with Two Drug-eluting Intraluminal Devices, Percutaneous Approach (ICD-10-PCS; 2023-05-07 10:30)
PROC: 027035Z Dilation of Coronary Artery, One Artery with Two Drug-eluting Intraluminal Devices, Percutaneous Approach (ICD-10-PCS; 2023-05-07 10:30)
DX: I21.4 Non-ST elevation (NSTEMI) myocardial infarction (principal); I25.10 Atherosclerotic heart disease of native coronary artery without angina pectoris
CPT/HCPCS: 36415; 71046; 80048; 80053; 80061; 83690; 84484; 85025; 85610; 85730; 93005; 93306; 93458; 96365; 99291; A9270; C1725; C1760; C1769; C1874; C1887; C1894; C9600; G0269; J0583; J1644; J2250; J2305; J3010; J7030; J7040